=== PATIENT | male | born 1980 | race Caucasian/White ===

== ENCOUNTER 2017-01-06 10:18 | Emergency (ER) | payer MEDICAID ==
[~2017-01-06] VITALS: Ht 185.4 cm; Wt 71.3 kg
[2017-01-06 10:31] VITALS: BP 119/72
[2017-01-06] MEDS ORDERED: DIAZEPAM 5 MG TABLET ONE (11:23)
[2017-01-06] MEDS ORDERED: KETOROLAC 30 MG/1 ML ONE (11:23)
[2017-01-06] MEDS ORDERED: HYDROmorphone 1 MG/ML, 1ML ONE (11:23)
[2017-01-06] MEDS ORDERED: HYDROmorphone 1 MG/ML, 1ML IM ONE (11:30)
[2017-01-06] MEDS ORDERED: DIAZEPAM 5 MG TABLET PO ONE (11:30)
[2017-01-06] MEDS ORDERED: KETOROLAC 30 MG/1 ML IM ONE (11:30)
== END 2017-01-06 12:03 | disposition home or self-care (01) ==
LOC: ED 11:57
DX: S33.5XXA Sprain of ligaments of lumbar spine, initial encounter (principal); M54.32 Sciatica, left side; X58.XXXA Exposure to other specified factors, initial encounter; Y93.89 Activity, other specified; Y99.8 Other external cause status; Y92.89 Other specified places as the place of occurrence of the external cause
CPT/HCPCS: 96372; 99284; J1170; J1885

== ENCOUNTER 2017-12-11 18:42 | Emergency (ER) | payer MEDICAID ==
[~2017-12-11] VITALS: Ht 188 cm; Wt 68.1 kg
[2017-12-11 18:44] VITALS: BP 126/85
[2017-12-11 19:29] LABS: BASOPHILS # (AUTO) 0.03 x10^3/uL (0-0.1); BASOPHILS % (AUTO) 0 % (0-1); EOSINOPHILS # (AUTO) 0.12 x10^3/uL (0-0.4); EOSINOPHILS % (AUTO) 1 % (1-7); LYMPHOCYTES # (AUTO) 1.93 x10^3/uL (1-3.4); LYMPHOCYTES % (AUTO) 20 % (22-44); MD NO; MEAN CORPUSCULAR HEMOGLOBIN 34.2 pg (27.5-34.5); MEAN CORPUSCULAR HGB CONC 34.4 g/dL (33.2-36.2); MEAN CORPUSCULAR VOLUME 99.4 fL (81-97); MEAN PLATELET VOLUME 9.4 fL (7.4-10.4); MONOCYTES # (AUTO) 0.69 x10^3/uL (0.2-0.8); MONOCYTES % (AUTO) 7 % (2-9); NEUTROPHILS # (AUTO) 6.72 x10^3/uL (1.8-6.8); NEUTROPHILS % (AUTO) 71 % (42-75); PLATELET COUNT 218 x10^3/uL (130-400); RED BLOOD COUNT 4.86 x10^6/uL (4.38-5.82); RED CELL DISTRIBUTION WIDTH 13.1 % (9.4-14.8)
[2017-12-11] MEDS ORDERED: ADAL20KI IJ (19:31)
[2017-12-11] MEDS ORDERED: METH2.5T PO (19:31)
[2017-12-11 19:38] LABS: ALBUMIN 4.6 g/dL (3.4-5.0); ANION GAP 9 mmol/L (5-15); CALCIUM 9.4 mg/dL (8.5-10.1); CHLORIDE 103 mmol/L (98-107); CREATININE 1.13 mg/dL (0.7-1.3)
== END 2017-12-11 20:47 | disposition left against medical advice (07) ==
LOC: ED 20:41
DX: B80 Enterobiasis (principal)
CPT/HCPCS: 36415; 80048; 82040; 85025; 99284

== ENCOUNTER 2018-06-22 09:16 | Emergency (ER) | payer MEDICAID ==
[~2018-06-22] VITALS: Ht 188 cm; Wt 78.6 kg
[~2018-06-22 09:16] MED LIST: ADAL20KI IJ; METH2.5T PO
--- NOTE | 2018-06-22 10:54 | NUR ---
FROM LOBBY TO ROOM AT THIS TIME.
--- NOTE | 2018-06-22 11:05 | NUR ---
PT REPORTING MOTA X 4D. WAS HERE 2D AGO, MOTA IMPROVED WITH TORADOL, BENADRYL, BUT HAS RESUMED.
[2018-06-22] MEDS ORDERED: SUMATRIPTAN 6MG/0.5ML SQ ONE ×2 (11:33→12:00)
[2018-06-22] MEDS ORDERED: hydrOXyzine 50MG TABLET ONE (11:33)
[2018-06-22] MEDS ORDERED: KETOROLAC 30 MG/1 ML ONE (11:33)
[2018-06-22] MEDS ORDERED: METOCLOPRAMIDE 5 MG/ML, 2ML ONE (11:33)
[2018-06-22] MEDS ORDERED: METOCLOPRAMIDE 5 MG/ML, 2ML IVPush ONE (12:00)
[2018-06-22] MEDS ORDERED: hydrOXyzine 50MG TABLET PO ONE (12:00)
[2018-06-22] MEDS ORDERED: KETOROLAC 30 MG/1 ML IM ONE (12:00)
[2018-06-22] MEDS ORDERED: KETOROLAC 30 MG/1 ML IVPush ONE (12:00)
--- NOTE | 2018-06-22 13:09 | NUR ---
REPORT TO JOANNA RADFORD
[2018-06-22 13:20] VITALS: BP 123/75
--- NOTE | 2018-06-22 13:20 | NUR ---
Discharge instructions discussed with patient, verbalizes understanding, questions answered and prescriptions provided with instruction for use.
== END 2018-06-22 13:22 | disposition home or self-care (01) ==
LOC: ED 12:58
DX: G44.52 New daily persistent headache (NDPH) (principal); G44.211 Episodic tension-type headache, intractable; M06.9 Rheumatoid arthritis, unspecified
CPT/HCPCS: 96372; 96374; 96375; 99283; J1885; J2765; J3030

== ENCOUNTER 2018-06-22 17:44 | Emergency (ER) | payer MEDICAID ==
[~2018-06-22] VITALS: Ht 188 cm; Wt 75.0 kg
--- NOTE | 2018-06-22 18:06 | NUR ---
Pt ambulates to room from triage with steady gait and balance.
--- NOTE | 2018-06-22 18:09 | NUR ---
PT ARRIVES TO ED WITH C/O MOTA X 4 DAYS. PT SEEN HERE EARLIER TODAY AND GIVEN MOTA COCKTAIL. PT REPORTS HE STILL HAS NO RELIEF. PT STILL SENSITIVE TO LIGHT. PT DENIES ANY TRAUMA AT THIS TIME. PT REPORTS HE DID NOT FILL THE RX HE WAS GIVEN HER EARLIER. PT IN BED. CALL LIGHT IN REACH AND AWAITING FURTHER ORDERS.
[2018-06-22] MEDS ORDERED: DIPHENHYDRAMINE 50 MG/ML, 1ML ONE (18:18)
[2018-06-22] MEDS ORDERED: METOCLOPRAMIDE 5 MG/ML, 2ML ONE (18:18)
[2018-06-22] MEDS ORDERED: KETOROLAC 30 MG/1 ML ONE (18:18)
[2018-06-22] MEDS ORDERED: DEXAMETHASONE 4 MG/ML, 5ML ONE (18:19)
--- NOTE | 2018-06-22 18:24 | NUR ---
PT MEDICATED PER EMAR. PT HAD 5CC FLUSH IN BETWEEN EACH IV MEDICAITON.
[2018-06-22] MEDS ORDERED: DIPHENHYDRAMINE 50 MG/ML, 1ML IVPush ONE (18:30)
[2018-06-22] MEDS ORDERED: METOCLOPRAMIDE 5 MG/ML, 2ML IVPush ONE (18:30)
[2018-06-22] MEDS ORDERED: SODIUM CHLORIDE FLUSH 10ML SYR IVF ONE (18:30)
[2018-06-22] MEDS ORDERED: KETOROLAC 30 MG/1 ML IVPush ONE (18:30)
[2018-06-22] MEDS ORDERED: DEXAMETHASONE 4 MG/ML, 1ML IVPush ONE (18:30)
--- NOTE | 2018-06-22 18:48 | NUR ---
PT REPORTS FEELING BETTER AT THIS TIME.
[2018-06-22 18:56] VITALS: BP 134/87
--- NOTE | 2018-06-22 18:56 | NUR ---
Patient/Caregiver given discharge instructions and they have confirmed that they understand the instructions. Patient ambulatory with steady gait.
== END 2018-06-22 19:22 | disposition home or self-care (01) ==
LOC: ED 18:06
DX: J01.10 Acute frontal sinusitis, unspecified (principal)
CPT/HCPCS: 96374; 96375; 99283; J1100; J1200; J1885; J2765

== ENCOUNTER 2019-04-06 08:21 | Emergency (ER) | payer MEDICAID ==
[~2019-04-06] VITALS: Ht 188 cm; Wt 77.0 kg
[2019-04-06] MEDS ORDERED: KETOROLAC 30 MG/1 ML ONE (09:11)
[2019-04-06] MEDS ORDERED: KETOROLAC 30 MG/1 ML IM ONE (09:30)
[2019-04-06 09:36] LABS: RAPID INFLUENZA A Negative (Negative); RAPID INFLUENZA B Negative (Negative)
[2019-04-06 09:52] VITALS: BP 114/73
--- NOTE | 2019-04-06 09:53 | NUR ---
Patient/Caregiver given discharge instructions and they have confirmed that they understand the instructions. Patient ambulatory with steady gait. PAIN NOW 09/08
== END 2019-04-06 10:11 | disposition home or self-care (01) ==
LOC: ED 09:45
DX: J04.0 Acute laryngitis (principal); F17.210 Nicotine dependence, cigarettes, uncomplicated
CPT/HCPCS: 71046; 87400; 96372; 99284; J1885